=== PATIENT | female | born 1965 | race Caucasian/White ===

== ENCOUNTER 2016-07-29 21:21 | Emergency (ER) | payer OTHER ==
[2016-07-29] MEDS ORDERED: AMOX/CLAV 875 MG/125 MG TABLET PO STA (21:52)
[2016-07-29] MEDS ORDERED: DEXAMETHASONE 10 MG/ML VIAL IM STA (21:52)
[2016-07-29] MEDS ORDERED: AMOX/CLAV 875 MG/125 MG TABLET PO ONE (21:57)
[2016-07-29] MEDS ORDERED: CHERRY SYRUP 10 ML UDC PO ONE (21:57)
[2016-07-29] MEDS ORDERED: DEXAMETHASONE 10 MG/ML VIAL ONE ×2 (21:58→22:01)
== END 2016-07-29 22:05 | disposition home or self-care (01) ==
DX: J32.1 Chronic frontal sinusitis (principal); H10.9 Unspecified conjunctivitis; R03.0 Elevated blood-pressure reading, without diagnosis of hypertension
CPT/HCPCS: 96372; 99283; A9270